=== PATIENT | male | born 1990 | race Caucasian/White ===

== ENCOUNTER 2019-03-17 19:09 | Emergency (ER) | payer SELFPAY ==
[2019-03-17 19:09] VITALS: BP 110/68; PULSE 97; RESP 18; TEMP 38.2; O2SAT 96; BMI 21.6
--- NOTE | 2019-03-17 19:28 | ED.RN ---
PT ASKED TO PUT ON GOWN, PT REFUSED AND REPORTED I'M JUST GONNA LEAVE
--- NOTE | 2019-03-17 19:30 | ED.DCSUM_ITS ---
- ER Visit Summary Date of Service: 03/17/19 Chief Complaint: Fever History of Present Illness: The patient is a 28 M I was going back to evaluate the patient had just been brought into the ER and had been here even 20 minutes as of yet. Nurse was discussing with him about getting change or not down and he may or may not need an IV. He explained to her that he did not want to get neck down. And he absolutely did not want an IV. And he walked out prior to me even seeing him or talking to him in the room. Physical Examination: [] Test Results: [] Emergency Department Course and Treatment: [] Treatment Plan: [] Disposition: [] Impression: Left prior to being seen No ER physician bill This note was generated with [employer] dictation software. It may contain incorrect words, spelling, and punctuation that were not noted in review of the chart prior to signing ED Disposition - Plan for ED Patient: Referrals: NOT,DEFINED [Primary Care Provider] -
[2019-03-17 21:00] VITALS: TEMP 38.2
== END 2019-03-17 21:02 | disposition left against medical advice (07) ==
PROVIDERS: Emergency Provider Emergency Medicine
DX: R50.9 Fever, unspecified (principal); Z53.21 Procedure and treatment not carried out due to patient leaving prior to being seen by health care provider

== ENCOUNTER → 2019-11-02 17:01 | Outpatient (CLI) | payer MEDICAID, SELFPAY | PROVIDERS: Referring Provider Clinical Nurse Specialist; Visit Provider Clinical Nurse Specialist | DX: Z11.59 Encounter for screening for other viral diseases (principal); Z20.828 Contact with and (suspected) exposure to other viral communicable diseases | CPT/HCPCS: 87635; C9803; U0003 ==

== ENCOUNTER 2021-04-06 15:08 | Emergency (ER) | payer OTHER, MEDICAID, SELFPAY ==
[2021-04-06 15:08] VITALS: BP 107/69; PULSE 89; RESP 18; TEMP 36.4; O2SAT 98
[2021-04-06 15:09] VITALS: BP 107/69; PULSE 97; RESP 18; TEMP 36.4; O2SAT 98; BMI 19.8
[2021-04-06 15:24] VITALS: O2SAT 99
--- NOTE | 2021-04-06 15:24 | EKG12_ITS ---
Test Reason : CP Blood Pressure : / mmHG Vent. Rate : 084 BPM Atrial Rate : 084 BPM P-R Int : 148 ms QRS Dur : 114 ms QT Int : 368 ms P-R-T Axes : 052 099 051 degrees QTc Int : 434 ms Normal sinus rhythm Normal ECG Confirmed by LEON BARROS, SONY ([id number]), electronic news gathering editor FAUSTO SMALLWOOD ([id number]) on 04/08/2021 11:42:55 AM Referred By: STAR Confirmed By:SONY QUINTERO MD
--- NOTE | 2021-04-06 16:10 | RAD_ITS ---
STUDY: X-RAY CHEST REASON FOR EXAM: Male, 30 years old. chest pain TECHNIQUE: Single AP portable view of the chest. COMPARISON: None. FINDINGS: The lungs are clear and expanded. There is no demonstrated pleural abnormality. Normal size heart. Normal mediastinum and ada. Normal visualized pulmonary arteries. Normal visualized aortic arch and descending thoracic aorta. Normal visualized thoracic spine. Normal visualized ribs, clavicles, and shoulders. There is no demonstrated abnormality of the visualized soft tissue structures of the upper abdomen. RAD/Chest 1 View (Portable) IMPRESSION: Nonacute x-ray examination of the chest. Electronically Signed: Rodolfo Arevalo MD ([place]) at 16:29 EST ,
[2021-04-06 17:46] LABS: Absolute Lymphocyte Count 2.01 X10^3/uL (0.83-4.51); Basophil# 0.03 X10^3/uL; Basophil% 0.3 % (0-1); Eosinophil# 0.12 X10^3/uL; Eosinophils% 1.3 % (0-5); Hematocrit 42.5 % (40-54); Hemoglobin 14.7 g/dL (13.0-16.5); Lymphocyte # 2.01 X10^3/ul (0.83-4.51); Lymphocyte % 22.6 % (19-41); Mean Corp Hgb Conc 34.6 g/dL (32-36); Mean Corpuscular Hgb 32.2 pg (27.0-32.0); Mean Platelet Vol. 9.6 fl (6.2-12.0); Monocyte% 7.9 % (0-10); NRBC Flagged by Analyzer 0 % (0-5); Neutrophil # 6.01 X10^3/uL (2.7-7.7); Neutrophil % 67.6 % (47-70); Platelet Count 190 K/mm3 (150-450); RBC Distribution Width CV 12.2 % (11.6-14.6); RBC Distribution Width SD 41.6 fl (35.1-43.9); Red Blood Count 4.57 M/mm3 (4.6-6.2); White Blood Count 8.9 K/mm3 (4.4-11.0)
[2021-04-06 18:17] LABS: International Normalized Ratio 1.1; Prothrombin Time (Protime)PT. 13.6 SECONDS (11.7-14.9)
[2021-04-06 18:33] LABS: Anion Gap 7 (5-15); BUN 12 mg/dL (7-18); BUN/Creat Ratio 13.3 RATIO (10-20); Calcium,Total 9.3 mg/dL (8.5-10.1); Chloride 102 mmol/L (98-107); EST Glomerular Filtration Rate 106 mL/min (>60); Est Glom Filt Rate - Afr Amer 128 mL/min (>60); Estimated Creatinine Clearance 114.59 ml/min; Glucose 64 mg/dL (74-106); Potassium 3.6 mmol/L (3.5-5.1); Sodium Level 140 mmol/L (136-145); Troponin-I HS < 3 pg/mL (3.0-78.0)
[2021-04-06 19:08] VITALS: BP 102/63; PULSE 77; RESP 13; O2SAT 97
--- NOTE | 2021-04-06 19:30 | EX.ED.DYSGE1 ---
HPI History of Present Illness Chief Complaint: Chest Pain Detail of Chief Complaint: Chest pain, shortness of breath, hemoptysis Informant: patient Onset/Context/Timing Onset: Days Context: Gradual Onset Current Severity: Mild Maximum Severity: Moderate Narrative Narrative: Patient reports being diagnosed with COVID 1 month ago. He had significant symptoms for 2-1/2 weeks and then seemed to improve. 3 days ago he developed low-grade fever again. He has been having intermittent sharp chest pain. He is continuing to have cough with yellow sputum production and occasional blood streaks in his sputum. PFSH PFSH Medical History no medical history no medical history Home Medications amoxicillin-pot clavulanate 1 tab PO BID 04/06/21 [History Last Taken Unknown] Allergy/AdvReac Type Severity Reaction Status Date / Time No Known Allergies Allergy Verified 03/17/19 19:12 Surgical History no surgical history Social History Smoking Status: Current some day smoker tobacco type: cigarettes ROS ROS ED Constitutional Constitutional ED: Denies chills or fever(s) Eyes Eyes: Denies change in vision ENT ENT ED: Denies sore throat Cardiovascular Cardiovascular: Reports chest pain Respiratory/Chest Respiratory/Chest: Reports cough, dyspnea and sputum Gastrointestinal Gastrointestinal: Denies abdominal pain, diarrhea, nausea or vomiting Genitourinary Genitourinary ED: Denies dysuria Musculoskeletal Musculoskeletal: Denies back pain or neck pain Integumentary Denies rash Neurologic Neurologic: Denies headache(s) or weakness Allergic/Immunologic Allergic/Immunologic ED: Denies urticaria EXAM Physical Exam Const Vital Signs: 04/06/21 15:08 04/06/21 15:09 04/06/21 15:24 Temperature 97.5 F L 97.5 F L Temperature Source Temporal Temporal Pulse Rate 89 97 Respiratory Rate 18 18 Respiratory Effort Blood Pressure 107/69 107/69 Blood Pressure Mean 81 81 Pulse Ox 98 98 99 Oxygen Delivery Method Room Air Room Air Room Air 04/06/21 19:00 04/06/21 19:08 04/06/21 21:17 Temperature Temperature Source Pulse Rate 77 73 Respiratory Rate 13 20 H Respiratory Effort Short of Breath Blood Pressure 102/63 119/75 Blood Pressure Mean 76 Pulse Ox 97 99 Oxygen Delivery Method Room Air Positive well nourished and well developed General Appearance ED: well developed HEENT Reports moist mucous membranes Eyes PERRL and EOMs intact bilaterally Neck supple Chest Wall inspection of chest normal and palpation of chest normal Resp normal respiratory effort and clear to auscultation bilaterally Cardio regular rate and regular rhythm GI normal to inspection, nondistended, normoactive bowel sounds and non-tender Palpation: soft Extremity normal to inspection Neuro oriented x3 Sensorium / Orientation: alert Psych mental status grossly normal Skin no rashes or lesions noted MDM MDM MDM Narrative Medical decision making narrative: Lab work, EKG, chest x-ray obtained per nursing protocol. CTA of the chest added at the time of my evaluation. Lab Data Attestation: I reviewed the patient's lab results. Labs: Laboratory Results - last 24 hr 04/06/21 04/06/21 04/06/21 17:35 17:35 17:35 WBC 8.9 RBC 4.57 L Hgb 14.7 Hct 42.5 MCV 93.0 MCH 32.2 H MCHC 34.6 RDW Std Deviation 41.6 RDW Coeff of Giuseppe 12.2 Plt Count 190 MPV 9.6 Immature Gran % (Auto) 0.300 Neut % (Auto) 67.6 Lymph % (Auto) 22.6 [place] % (Auto) 7.9 Eos % (Auto) 1.3 Baso % (Auto) 0.3 Absolute Neuts (auto) 6.0 Absolute Lymphs (auto) 2.01 Nucleated RBC % 0 PT 13.6 INR 1.1 Sodium 140 Potassium 3.6 Chloride 102 Carbon Dioxide 31.0 Anion Gap 7 BUN 12 Creatinine 0.90 Estim Creat Clear Calc 114.59 Est GFR (MDRD) Af Amer 128 Est GFR (MDRD) Non-Af 106 BUN/Creatinine Ratio 13.3 Glucose 64 L Calcium 9.3 Troponin I High Sens < 3 L Radiography Chest X-Ray - ED: 1 View, Read by ED Physician, Normal, Heart, Lungs and Mediastinum Diagnostic Testing: Clinical Impression(s) from Imaging Studies Chest X-Ray 04/06/21 16:10 IMPRESSION: Nonacute x-ray examination of the chest. Electronically Signed: Rodolfo Arevalo MD ([place]) at 16:29 EST , Chest CTA 04/06/21 19:35 IMPRESSION: Negative CTA chest. Electronically Signed: Higinio Waters MD at 20:02 EST , EKG Initial EKG: Attestation: I personally reviewed and interpreted this EKG as follows: Interpretation: Sinus Rhythm (Sinus 84 with no acute ischemia.) Treatment and Re-Evaluation Comments:: On repeat evaluation patient resting comfortably. Test results discussed with him. Lab work unremarkable with a negative troponin. Chest x-ray is clear per my interpretation. CTA of the chest reveals no evidence of PE. Supportive care discussed with the patient. I did recommend Claritin or something similar to help with postnasal drainage. Discharge Plan Triage Chief Complaint: Chest Pain ED Provider: Johanna Garcia Dx/Rx/DC Orders Clinical Impression: Chest pain Instructions: ED Chest Pain, Noncardiac Prescriptions: No Action amoxicillin-pot clavulanate 875-125 mg Tablet 1 tab PO BID RF: 0 Primary Care Provider: Krissy Astorga NP Referrals: Krissy Astorga NP, OFFICE SUPPORT ASSISTANT-C [Primary Care Provider] - 1-2 Weeks Disposition Disposition: Home, Self Care Discharge Date/Time: 04/06/21 21:18
--- NOTE | 2021-04-06 19:35 | CT_ITS ---
EXAM: CT ANGIOGRAPHY CHEST WITHOUT AND WITH INTRAVENOUS CONTRAST CLINICAL INDICATION: hemoptysis TECHNIQUE: Helically acquired angiography images were obtained of the chest without and with intravenous contrast. This CT exam was performed using one or more of the following dose reduction techniques: automated exposure control, adjustment of the mA and/or kV according to patient size, and/or use of iterative reconstruction technique. This report was created using [employer] report generation technology. MIP reconstructed images were created and reviewed. CONTRAST: IV 100mL [id number] COMPARISON: None. FINDINGS: PULMONARY ARTERIES: Unremarkable. Normal in caliber. No evidence of pulmonary embolism. AORTA: Unremarkable. Normal in caliber. No evidence of dissection. GREAT VESSELS OF AORTIC ARCH: Unremarkable. Normal in caliber. No evidence of dissection. LUNGS AND PLEURAL SPACES: Unremarkable. No mass. No consolidation or edema. No pleural effusion or thickening. No pneumothorax. HEART: Unremarkable. Heart size is normal. No pericardial effusion. No signs of right heart strain, ratio of right ventricle to left ventricle measures less than 1. MEDIASTINUM: Unremarkable. No mediastinal or hilar adenopathy. Esophagus is unremarkable. No hiatal hernia. THYROID: Unremarkable. No thyroid lesions. BONES/JOINTS: Unremarkable. No suspicious lytic or blastic abnormality. CT/CTA Chest W/WO Contrast IMPRESSION: Negative CTA chest. Electronically Signed: Higinio Waters MD at 20:02 [facility] Reading Location ID and State: [facility] / [place] , Service support ,
[2021-04-06 21:17] VITALS: BP 119/75; PULSE 73; RESP 20; O2SAT 99
--- NOTE | 2021-04-06 21:17 | ED.RN ---
THIS NURSE REVIEWED D/C INSTRUCTIONS WITH PT. PT VERBALIZED UNDERSTANDING OF INSTRUCTIONS. IV D/C. IV CATHETER INTACT. PT TOLERATED WELL. PT DENIES FURTHER NEEDS OR QUESTIONS AT THIS TIME. PT AMBULATES FROM ROOM ON OWN WITHOUT ASSISTANCE FROM STAFF
== END 2021-04-06 23:59 | disposition home or self-care (01) ==
PROVIDERS: Emergency Provider Emergency Medicine; PCP Clinical Nurse Specialist; Visit Provider Emergency Medicine
DX: R07.9 Chest pain, unspecified (principal); F17.210 Nicotine dependence, cigarettes, uncomplicated; R06.02 Shortness of breath; Z86.16 Personal history of COVID-19; R04.2 Hemoptysis
CPT/HCPCS: 71045; 71275; 80048; 84484; 85025; 85610; 93005; 99284; Q9967